=== PATIENT | female | born 1960 ===

== ENCOUNTER 2017-11-09 09:42 | Outpatient (CLI) | payer OTHER ==
[~2017-11-09 09:42] MED LIST: AMBIEN CR12.5 MG/BL; BENICAR20 MG; LANTUS100 U/ML; LORAZEPAM2 MG; SINGULAIR 10MG10 MG; SYMBICORT 80/10.2 GM; SYNTHROID100 MCG; XOPENEX0.63 MG/3
== END 2017-11-09 13:56 | disposition home or self-care (01) ==
LOC: SONOGRAMA 09:42
DX: R10.9 Unspecified abdominal pain (principal)

== ENCOUNTER → 2017-11-10 | Outpatient (CLI) | payer OTHER | END | disposition home or self-care (01) | LOC: EKG 15:55 | DX: R00.2 Palpitations (principal); I10 Essential (primary) hypertension ==

== ENCOUNTER 2017-11-14 11:50 | Outpatient (CLI) | payer OTHER | END 2017-11-14 12:30 | disposition home or self-care (01) | LOC: NUCLEAR 11:50 | DX: I87.2 Venous insufficiency (chronic) (peripheral) (principal); I73.9 Peripheral vascular disease, unspecified ==

== ENCOUNTER 2017-11-17 10:37 | Outpatient (CLI) | payer OTHER | END 2017-11-17 10:41 | disposition home or self-care (01) | LOC: MAMO-SONO 10:37 | DX: Z12.31 Encounter for screening mammogram for malignant neoplasm of breast (principal); N64.4 Mastodynia ==

== ENCOUNTER 2018-01-11 08:56 | Emergency (ER) | payer OTHER ==
[~2018-01-11] VITALS: Ht 162.6 cm; Wt 76.2 kg
[2018-01-11] MEDS ORDERED: SYNTHROID200 MCG PO (09:15)
[2018-01-11] MEDS ORDERED: NIFE60TA3 PO (09:16)
[2018-01-11] MEDS ORDERED: FORTAMET1000 MG PO (09:17)
[2018-01-11] MEDS ORDERED: PROTONIX40 MG PO (09:18)
[2018-01-11] MEDS ORDERED: ST. JOSEPH ASPI81 M3 PO (09:19)
[2018-01-11] MEDS ORDERED: LOVAZA1 GM PO (09:22)
== END 2018-01-11 15:47 | disposition home or self-care (01) ==
LOC: ER 08:56 → CPU-OBS 09:15 → ER 15:47
DX: R07.89 Other chest pain (principal)
CPT/HCPCS: G0378; G0379; 93005

== ENCOUNTER 2018-06-21 07:43 | Outpatient (CLI) | payer OTHER ==
[~2018-06-21 07:43] MED LIST changes: +FORTAMET1000 MG PO; +LOVAZA1 GM PO; +NIFE60TA3 PO; +PROTONIX40 MG PO; +ST. JOSEPH ASPI81 M3 PO; +SYNTHROID200 MCG PO
== END 2018-06-21 07:52 | disposition home or self-care (01) ==
LOC: TOM 07:43
DX: G43.909 Migraine, unspecified, not intractable, without status migrainosus (principal); R41.2 Retrograde amnesia

== ENCOUNTER → 2018-09-11 | Emergency (ER) | payer OTHER ==
[~2018-09-11] VITALS: Ht 162.6 cm; Wt 79.8 kg
[~2018-09-11] MED LIST changes: +SYNTHROID125 MCG
== END | disposition left against medical advice (07) ==
LOC: ER 16:13
DX: Z53.20 Procedure and treatment not carried out because of patient's decision for unspecified reasons (principal)

== ENCOUNTER 2019-06-11 08:18 | Outpatient (CLI) | payer OTHER | END 2019-06-11 08:22 | disposition home or self-care (01) | LOC: TOM 08:18 | DX: R10.84 Generalized abdominal pain (principal); R13.19 Other dysphagia; J44.9 Chronic obstructive pulmonary disease, unspecified; I10 Essential (primary) hypertension ==

== ENCOUNTER 2023-01-23 08:29 | Outpatient (CLI) | payer OTHER | END 2023-01-23 08:41 | disposition home or self-care (01) | LOC: SONOGRAMA 08:29 | PROVIDERS: ATTEND Internal Medicine Cardiovascular Disease | DX: M12.9 Arthropathy, unspecified (principal); M10.9 Gout, unspecified; R10.9 Unspecified abdominal pain ==

== ENCOUNTER 2024-02-21 08:27 | Outpatient (CLI) | payer OTHER | END 2024-02-21 08:34 | disposition home or self-care (01) | LOC: TOM 08:27 | PROVIDERS: ATTEND Internal Medicine Cardiovascular Disease | DX: R10.9 Unspecified abdominal pain (principal) ==